=== PATIENT | male | born 1980 | race Caucasian/White ===

== ENCOUNTER 2017-11-18 10:25 | Emergency (ER) | payer OTHER ==
[~2017-11-18] VITALS: Ht 172.7 cm; Wt 72.0 kg
[2017-11-18] MEDS ORDERED: CEPH-572 PO (11:21)
[2017-11-18] MEDS ORDERED: SULF1TAB49 PO (11:21)
[2017-11-18 11:31] VITALS: BP 119/68
== END 2017-11-18 11:33 | disposition home or self-care (01) ==
LOC: ER 10:25
DX: L02.11 Cutaneous abscess of neck (principal); F17.200 Nicotine dependence, unspecified, uncomplicated; Z79.899 Other long term (current) drug therapy
CPT/HCPCS: 99283